=== PATIENT | male | born 2000 | race Two or more races ===

== ENCOUNTER 2019-07-11 11:00 | Emergency (ER) | payer MEDICAID ==
[~2019-07-11] VITALS: Ht 180.3 cm; Wt 99.8 kg
--- NOTE | 2019-07-11 11:15 | NUR ---
c/o left index finger pain, gloves got caught by the drilling machine. PT AAOX4, VSS, RR EVEN & UNLABORED. DENIES ANY DISCOMFORT @ THIS TIME. PT SEEN & EVAL'D BY DR. RUIZ.
[2019-07-11] MEDS ORDERED: MORPHINE SULFATE INJ 4 MG/ML DISP.SYRIN IV ONE (11:30)
[2019-07-11] MEDS ORDERED: ONDANSETRON HCL/PF 4 MG/2 ML VIAL IV ONE (11:30)
[2019-07-11] MEDS ORDERED: IV NS 0.9% 1,000 ML BAG IV ONE (11:30)
[2019-07-11] MEDS ORDERED: TDAP [DIPH/PERTUSSIS/TET] 0.5 ML VIAL IM ONE ×2 (11:30→11:32)
[2019-07-11] MEDS ORDERED: CEFAZOLIN 1 GM in IV D5W 50 ML IV SCH (11:30)
[2019-07-11] MEDS ORDERED: ONDANSETRON HCL/PF 4 MG/2 ML VIAL ONE (11:31)
[2019-07-11] MEDS ORDERED: MORPHINE SULFATE INJ 4 MG/ML DISP.SYRIN ONE (11:31)
--- NOTE | 2019-07-11 11:42 | NUR ---
MEDICATED ORDERED, PT WES WELL.
[2019-07-11] MEDS ORDERED: LIDOCAINE HCL/MPF 1% 30 ML VIAL IJ ONE (12:27)
--- NOTE | 2019-07-11 12:34 | NUR ---
CALL DR. STYLES [phone] LEFT MSG
--- NOTE | 2019-07-11 13:11 | NUR ---
Patient discharged to home in stable condition. Written and verbal after care instructions given. Patient verbalizes understanding of instruction. IV removed. Catheter intact and site benign. Pressure and 4x4 applied to site. No bleeding noted.
[2019-07-11 13:12] VITALS: BP 137/70
== END 2019-07-11 13:12 | disposition home or self-care (01) ==
LOC: ER 11:06
DX: S62.631A Displaced fracture of distal phalanx of left index finger, initial encounter for closed fracture (principal); W25.XXXA Contact with sharp glass, initial encounter; Y93.89 Activity, other specified; Y92.89 Other specified places as the place of occurrence of the external cause; Y99.8 Other external cause status
CPT/HCPCS: 12002; 73140; 90471; 90715; 96365; 96375; 99284; A6403; J0690; J2270; J2405; J3490; J7030; J7060